=== PATIENT | male | born 1955 | race Caucasian/White ===

== ENCOUNTER 2020-01-29 11:26 | Outpatient (NON) | payer MEDICARE, SELFPAY ==
[2020-01-30 23:37] LABS: SARS-CoV-2 RNA PCR Positive
== END 2020-01-29 11:27 ==
PROVIDERS: Visit Provider Physician Assistant
DX: U07.1 COVID-19 (principal)
CPT/HCPCS: 87635; C9803; U0003

== ENCOUNTER → 2020-03-23 10:46 | Outpatient (CLI) | payer MEDICARE, SELFPAY ==
--- NOTE | ~2020-03-23 | CT_ITS ---
EXAMINATION: CT abdomen pelvis w con INDICATION: Left lower quadrant pain TECHNIQUE: Computed tomographic images of the abdomen and pelvis were obtained after the administrati on of 100 cc of Omnipaque 350 intravenous contrast. The dose-length product (DLP) was 1183.91 mGy-cm. Automated exposure control and iterative reconstruction technique were employed. COMPARISON: None available FINDINGS: Minimal dependent atelectasis is present in the lung bases. The heart size is normal. There is a small sliding hiatal hernia. The gallbladder is surgically absent. There is mild enlargement of the common bile duct and central intrahepatic ducts which is likely due to post cholecystectomy stat e. The liver, spleen, pancreas, and adrenal glands are normal. The kidneys are unremarkable. No patho logically enlarged abdominal or pelvic lymph nodes are identified. There is no free intraperitoneal g as or evidence of bowel obstruction. Colonic diverticulosis is present without evidence of diverticul itis. The appendix is normal. There is moderate lumbar spondylosis. There is atrophy of the gluteus m inimus muscles. IMPRESSION: 1. No CT correlate for the patient's symptoms. Reviewed, dictated and finalized at location A. F CLINICAL DIETITIAN
[2020-03-23 11:06] LABS: Estimated Glomerular Filt Rate > 60
== END ==
PROVIDERS: PCP Family Medicine; Visit Provider Physician Assistant
DX: R10.32 Left lower quadrant pain (principal)
CPT/HCPCS: 74177; Q9967

== ENCOUNTER → 2020-05-23 02:45 | Outpatient (CLI) | payer MEDICARE, SELFPAY ==
[2020-05-23 21:05] LABS: SARS-CoV-2 RNA PCR Negative
== END ==
PROVIDERS: PCP Family Medicine; Visit Provider Internal Medicine Gastroenterology
DX: Z01.812 Encounter for preprocedural laboratory examination (principal); Z20.822 Contact with and (suspected) exposure to COVID-19
CPT/HCPCS: C9803; U0003; U0005

== ENCOUNTER 2020-05-26 01:10 | Day surgery (SDC) | payer MEDICARE, SELFPAY ==
[2020-05-12 09:35] VITALS: BMI 31.6
[2020-05-26 06:18] VITALS: BP 124/88; PULSE 99; RESP 18; TEMP 36.1; O2SAT 100; BMI 31.1
[2020-05-26] MEDS: LACTATED RINGERS 1,000 ML 150 ML IV CONT (06:26)
--- NOTE | 2020-05-26 07:14 | PM.HPGS ---
History of Present Illness History of Present Illness Consent: Risks, benefits, and alternatives have been discussed and questions answered. Patient agrees to proceed with procedure. Chief complaint: neoplasm screening Narrative: Misha Guillermo is a 64 year old male Here for colon cancer screening. His last colonoscopy was 12 years ago. He has had occasional hemorrhoidal bleeding Review of Systems Review of Systems: All systems reviewed & are unremarkable except as noted in HPI and below PMFSH Past Medical History Medical History Abnormal stress echo Atrial fibrillation with rapid ventricular response CAD in [place] artery Chest pain in adult COVID-27 january 2021 Dyslipidemia Essential hypertension Gastro-esophageal reflux disease with esophagitis History of left heart catheterization Irregular heart beats Mixed hyperlipidemia Neuropathy PAF (paroxysmal atrial fibrillation) Tinnitus of both ears Toxic effect of venom Surgical History Surgical History History of cholecystectomy History of neck surgery History of vasectomy Family History Family History Mother Family history of thyroid disease Diabetes mellitus, Onset Age: 62 Family history of congestive heart failure, Onset Age: 62 Acute myocardial infarction Family history of cardiovascular disease Father Acute myocardial infarction Family history of cardiovascular disease Grandparent Diabetes mellitus Sibling Cerebrovascular accident Family history of atrial fibrillation Other Family history of Hodgkin's lymphoma Family history of gastrointestinal disorder Social History Social History Smoking packs per day: 1 Smoking cigarettes per day: 20.0 Years smoked: 20 Smoking pack-years: 20.00 Smoking status: Former smoker Tobacco type: cigarettes Smoking end date: 03/11/02 Alcohol intake: never Substance use: never Substance use type: does not use Living arrangements: with family Spiritual care concerns: No Meds Home Medications and Allergies Home Medications Medication Instructions Recorded Confirmed Type multivitamin 1 tablet PO DAILY 03/31/19 05/12/20 History aspirin 81 mg tablet,delayed 81 mg PO DAILY 10/06/19 05/12/20 History release lisinopril 20 mg tablet 20 mg PO DAILY 10/06/19 05/12/20 History metoprolol succinate 100 mg 100 mg PO DAILY 10/06/19 05/12/20 History tablet,extended release 24 hr rosuvastatin 20 mg tablet 20 mg PO DAILY 10/06/19 05/12/20 History rivaroxaban 20 mg tablet 20 mg PO DAILY #30 each 10/27/19 05/12/20 Rx famotidine 20 mg tablet 20 mg PO Q12H #180 tablet 03/15/20 05/12/20 Rx tadalafil 5 mg tablet 5 mg PO DAILY #90 tablet 03/15/20 05/12/20 Rx sodium,potassium,mag sulfates 17.5 See Rx Instructions PO .COMPLEX 04/13/20 Rx gram-3.13 gram-1.6 gram oral soln #354 ml Allergies Allergy/AdvReac Type Severity Reaction Status Date / Time diclofenac Allergy Unknown stomach Verified 05/26/20 06:17 upset venom-wasp Allergy Unknown Skin Verified 05/26/20 06:17 Reaction Vital Signs Vital Signs - 24 hr 05/26/20 06:18 Temperature 36.1 C L Pulse Rate 99 Respiratory Rate 18 Blood Pressure 124/88 Pulse Oximetry 100 Exam Resp: Auscultation: clear to auscultation bilaterally Cardio: Rate: regular rate Rhythm: regular rhythm GI: GI Palp: Yes Soft to palpation and No Tenderness to palpation present (GI) Assessment and Plan Assessment and plan (1) Colon cancer screening: Code(s): Z12.11 - Encounter for screening for malignant neoplasm of colon Status: Acute Assessment and Plan: Colonoscopy with possible biopsy or polypectomy or cautery or injection of substances.
--- NOTE | 2020-05-26 07:15 | WPDANESEPPF ---
Anes - Initial Pre Proc Eval Procedure: Operation Date: 05/26/20 07:30 Proposed Procedures p Screening Colonoscopy - Lonnie Mendez MD Date/Time: 05/26/20 07:15 Surgeon: Lonnie Mendez MD Pre Op Diagnosis: neoplasm screening Patient Data Age: 64 Gender: M Height: 6 ft 4 in Weight: 116.2 kg Last Vital Signs Temp 97.0 F L 05/26/20 06:18 Pulse 99 05/26/20 06:18 Resp 18 05/26/20 06:18 BP 124/88 05/26/20 06:18 Pulse Ox 100 05/26/20 06:18 Allergies Allergy/AdvReac Type Severity Reaction Status Date / Time diclofenac Allergy Unknown stomach Verified 05/26/20 06:17 upset venom-wasp Allergy Unknown Skin Verified 05/26/20 06:17 Reaction Home Medications Medication Instructions Recorded Confirmed Type multivitamin 1 tablet PO DAILY 03/31/19 05/12/20 History aspirin 81 mg tablet,delayed 81 mg PO DAILY 10/06/19 05/12/20 History release lisinopril 20 mg tablet 20 mg PO DAILY 10/06/19 05/12/20 History metoprolol succinate 100 mg 100 mg PO DAILY 10/06/19 05/12/20 History tablet,extended release 24 hr rosuvastatin 20 mg tablet 20 mg PO DAILY 10/06/19 05/12/20 History rivaroxaban 20 mg tablet 20 mg PO DAILY #30 each 10/27/19 05/12/20 Rx famotidine 20 mg tablet 20 mg PO Q12H #180 tablet 03/15/20 05/12/20 Rx tadalafil 5 mg tablet 5 mg PO DAILY #90 tablet 03/15/20 05/12/20 Rx sodium,potassium,mag sulfates 17.5 See Rx Instructions PO .COMPLEX 04/13/20 Rx gram-3.13 gram-1.6 gram oral soln #354 ml Patient hx anesthesia problems: none Family hx anesthesia problems: none PMFSH Past Medical History Medical History Abnormal stress echo Atrial fibrillation with rapid ventricular response CAD in [place] artery Chest pain in adult COVID-27 january 2021 Dyslipidemia Essential hypertension Gastro-esophageal reflux disease with esophagitis History of left heart catheterization Irregular heart beats Mixed hyperlipidemia Neuropathy PAF (paroxysmal atrial fibrillation) Tinnitus of both ears Toxic effect of venom Surgical History Surgical History History of cholecystectomy History of neck surgery History of vasectomy Family History Family History Mother Family history of thyroid disease Diabetes mellitus, Onset Age: 62 Family history of congestive heart failure, Onset Age: 62 Acute myocardial infarction Family history of cardiovascular disease Father Acute myocardial infarction Family history of cardiovascular disease Grandparent Diabetes mellitus Sibling Cerebrovascular accident Family history of atrial fibrillation Other Family history of Hodgkin's lymphoma Family history of gastrointestinal disorder Social History Social History Smoking packs per day: 1 Smoking cigarettes per day: 20.0 Years smoked: 20 Smoking pack-years: 20.00 Smoking status: Former smoker Tobacco type: cigarettes Smoking end date: 03/11/02 Alcohol intake: never Substance use: never Substance use type: does not use Living arrangements: with family Spiritual care concerns: No Anes - Eval Final PreProcedure Day of Procedure 05/26/20 07:15 Patient weight: overweight Heart: irregular rhythm Lungs: clear to auscultation Airway: Mallampati scale class II Neurological: alert and oriented Last oral intake: >/= 8 hours ASA classification: III Emergent: no Anesthetic plan: proceed Anesthesia type and monitoring: general GIVS and standard monitoring Informed Consent: The patient's anesthetic plan and its attendant risks and benefits were discussed with the patient/family/POA. Questions were solicited and answers provided to the satisfaction of the patient/family/POA.
[2020-05-26 07:43] VITALS: BP 121/91; PULSE 83; RESP 13; O2SAT 97
[2020-05-26 07:53] VITALS: BP 129/84; PULSE 81; RESP 20; O2SAT 96
[2020-05-26 08:03] VITALS: BP 132/93; PULSE 73; RESP 14; O2SAT 98
== END 2020-05-26 08:20 | disposition home or self-care (01) ==
PROVIDERS: PCP Family Medicine; Visit Provider Internal Medicine Gastroenterology
PROC: 0DJD8ZZ Inspection of Lower Intestinal Tract, Via Natural or Artificial Opening Endoscopic (ICD-10-PCS; CPT 45378; principal; 2020-05-26 07:30)
DX: Z12.11 Encounter for screening for malignant neoplasm of colon (principal); K64.8 Other hemorrhoids; K57.30 Diverticulosis of large intestine without perforation or abscess without bleeding; I25.10 Atherosclerotic heart disease of native coronary artery without angina pectoris; I10 Essential (primary) hypertension; E78.2 Mixed hyperlipidemia; I48.0 Paroxysmal atrial fibrillation; K21.9 Gastro-esophageal reflux disease without esophagitis; G62.9 Polyneuropathy, unspecified; Z86.16 Personal history of COVID-19; Z87.891 Personal history of nicotine dependence; Z79.01 Long term (current) use of anticoagulants
CPT/HCPCS: G0121; C9803; J2704; J7120; U0003; U0005

== ENCOUNTER 2020-09-07 17:30 | Observation (INO) | payer MEDICARE, SELFPAY ==
[2020-09-07] VITALS (12 sets, daily range): BP systolic 115–140; BP diastolic 54–84; PULSE 51–58; RESP 11–20; TEMP 36.6; O2SAT 96–100; BMI 31.4
--- NOTE | ~2020-09-07 | XR_ITS ---
EXAMINATION: XR chest 2V EXAM DATE: 09/07/2020 17:56 INDICATION: Sternal chest pain. TECHNIQUE: Frontal and lateral projections of the chest obtained and reviewed. There is no prior grey dy for comparison. FINDINGS: The lungs are clear. There are no pleural effusions. The cardiomediastinal silhouette is within normal limits. There is no pneumothorax suspected. The bones and soft tissues are unremarkab le. There are cholecystectomy clips. IMPRESSION: No acute cardiopulmonary findings. Reviewed, dictated and finalized at location A.
--- NOTE | 2020-09-07 17:38 | ECG_ITS ---
Measurements Intervals [place] Rate: 52 P: 15 WI: 180 QRS: -21 QRSD: 96 T: -9 QT: 433 QTc: 404 Interpretive Statements SINUS BRADYCARDIA DELAYED PRECORDIAL R/S TRANSITION VOLTAGE CRITERIA FOR LVH BORDERLINE T WAVE ABNORMALITY- INFERIOR LEADS BORDERLINE ECG Electronically Signed On 09-08-2020 7:48:49 CDT by Jeffrey Luke D.O.
[2020-09-07 17:50] LABS: Basophils Absolute Auto 0.1 K/mm3 (0.0-0.1); Basophils Percent Auto 0.7 % (0.2-1.2); Eosinophils Absolute Auto 0.5 K/mm3 (0-0.3); Eosinophils Percent Auto 7.1 % (0-4.4); Hematocrit 43.7 % (42.0-52.0); Hemoglobin 14.7 g/dL (14.0-18.0); Immature Granulocyte Absolute 0.01 K/mm3 (0.00-0.031); Immature Granulocyte Percent A 0.1 % (0-0.5); Lymphocytes Absolute Auto 1.85 K/mm3 (0.9-3.2); Lymphocytes Percent Auto 24.9 % (18.3-44.2); Mean Corpuscular HGB Conc 33.6 g/dl (32-36); Mean Corpuscular Hemoglobin 30.1 pg (26-34); Mean Corpuscular Volume 89.5 fl (80-100); Mean Platelet Volume 11.3 fl (7.4-10.4); Monocytes Absolute Auto 0.6 K/mm3 (0.1-0.6); Monocytes Percent Auto 7.8 % (2.6-8.5); Neutrophils Absolute Auto 4.4 K/mm3 (1.3-6.7); Neutrophils Percent Auto 59.4 % (45.5-73.1); Platelet Count Result 227 k/mm3 (150-375); Red Blood Count 4.88 M/mm3 (4.6-6.20); Red Cell Distribution Width 12.5 % (11.5-14.5); White Blood Count 7.4 K/mm3 (4.5-10.0)
--- NOTE | 2020-09-07 17:51 | ED.CHESTPAIN ---
HPI - Chest Pain General Chief Complaint: Chest Pain Stated Complaint: CP, R arm pain Time Seen by Provider: 09/07/20 17:43 Source: old records reviewed History of Present Illness HPI narrative: Patient presents emergency department from home for chest pain. Patient states pain began approximately 2:00 today when [facility] states that pain was in his right upper chest and radiating to his right arm states the pain is improved at this time he noted shortness of breath with that. Patient does state he has a history of some mild cardiac blockage for which she is followed by Dr. Saldivar at [facility] he denies any fevers or chills abdominal pain nausea vomiting or any other symptoms Related Data Home Medications Medication Instructions Recorded Confirmed multivitamin 1 tablet PO DAILY 03/31/19 09/05/20 aspirin 81 mg tablet,delayed 81 mg PO DAILY 10/06/19 09/05/20 release lisinopril 20 mg tablet 20 mg PO DAILY 10/06/19 09/05/20 metoprolol succinate 100 mg 100 mg PO DAILY 10/06/19 09/05/20 tablet,extended release 24 hr rosuvastatin 20 mg tablet 20 mg PO DAILY 10/06/19 09/05/20 Allergies Allergy/AdvReac Type Severity Reaction Status Date / Time diclofenac Allergy Unknown stomach Verified 09/05/20 10:17 upset venom-wasp Allergy Unknown Skin Verified 09/05/20 10:17 Reaction Review of Systems Review of Systems: Narrative: Gen.: Denies fevers or chills ENT: Denies congestion Respiratory: Reports shortness of breath CV: See HPI GI: Denies abdominal pain nausea, emesis or diarrhea denies burning, urgency, frequency or hematuria Musculoskeletal: Denies back pain or muscle pain Neuro: Denies numbness, tingling, weakness or focal weakness Skin: Denies rash Except as documented, all other systems reviewed and negative [facility] Past Medical History Medical History Abnormal stress echo Atrial fibrillation with rapid ventricular response CAD in [place] artery Chest pain in adult COVID-27 january 2021 Dyslipidemia Essential hypertension Gastro-esophageal reflux disease with esophagitis History of left heart catheterization Irregular heart beats Mixed hyperlipidemia Neuropathy PAF (paroxysmal atrial fibrillation) Tinnitus of both ears Toxic effect of venom Surgical History Surgical History History of cholecystectomy History of neck surgery History of vasectomy Family History Family History Mother Family history of thyroid disease Diabetes mellitus, Onset Age: 62 Family history of congestive heart failure, Onset Age: 62 Acute myocardial infarction Family history of cardiovascular disease Father Acute myocardial infarction Family history of cardiovascular disease Grandparent Diabetes mellitus Sibling Cerebrovascular accident Family history of atrial fibrillation Other Family history of Hodgkin's lymphoma Family history of gastrointestinal disorder Social History Social History Smoking packs per day: 1 Smoking cigarettes per day: 20.0 Years smoked: 20 Smoking pack-years: 20.00 Tobacco type: cigarettes Smoking end date: 03/11/02 Alcohol intake: never Substance use: never Substance use type: does not use Spiritual care concerns: No Exam Narrative: Exam Narrative: APPEARANCE: No acute distress, nontoxic, resting in bed EYES: EOMI HEENT: Normocephalic, atraumatic, OMM RESPIRATORY: No respiratory distress Clear to auscultation bilaterally with no rhonchi wheezing or rales. CARDIOVASCULAR: Regular rate and rhythm without murmurs rubs or gallops. Bilateral radial pulse 2+ ABDOMINAL: Soft, nontender, nondistended, no rebound or guarding MUSCULOSKELETAl: Moves all extremities. No clubbing, cyanosis or edema. NEURO: Awake and a
[2020-09-07 17:59] LABS: INR 0.9; Prothrombin Time 13.2 Seconds (11.1-14.7)
[2020-09-07 18:00] LABS: Anion Gap 9 mmol/L (8-16); Blood Urea Nitrogen 19 mg/dL (9-20); Calcium 9.4 mg/dL (8.4-10.2); Carbon Dioxide 23 mmol/L (22-30); Chloride 107 mmol/L (98-107); Estimated CRCL calculation 100 ml/min; Estimated Glomerular Filt Rate > 60; Glucose 87 mg/dL (75-110); Partial Thromboplastin Time 34.6 SECONDS (22.3-36.8); Sodium 139 mmol/L (137-145)
[2020-09-07 18:11] LABS: Troponin I < 0.012 ng/mL (0.000-0.034)
[2020-09-07 21:56] LABS: Troponin I < 0.012 ng/mL (0.000-0.034)
--- NOTE | 2020-09-07 22:00 | ADMGEN ---
This patient, Misha Guillermo, was admitted to IMU Room 203-01. Patient/family oriented to hospital policies and general routines including ID bracelet, bed and alarms, visiting hours, pain management, procedures, bathroom and other care routines, personal items, smoking policy, room service/diet, and visiting hours. Information on how to activate the Rapid Response Team has been discussed. Patient/Family are encouraged to report perceived risks to care and to ask questions if they do not understand what they are told or what they should do.
[2020-09-08] VITALS (8 sets, daily range): BP systolic 122–139; BP diastolic 68–73; PULSE 49–76; RESP 20; TEMP 35.6–36.5; O2SAT 96–100
[2020-09-08 00:27] LABS: Troponin I < 0.012 ng/mL (0.000-0.034)
--- NOTE | 2020-09-08 10:13 | PM.SD2 ---
Same Day Admit/Disch: HPI History of Present Illness Chief complaint: Chest Pain Narrative: Misha Guillermo is a 64 year old male Who presents to the ER yesterday with right-sided chest pain which radiated to his right arm in the afternoon at 2:00 a.m.. He noted some shortness of breath associated with it. The the pain resolves spontaneously but remains sore in his right arm for some time. Patient had a history of mild cardiac blockage for which he follows up with Dr. Singh from [facility] and was worried about heart attack hence came to the ER for evaluation. His initial EKG in the ER not reveal any acute ST-T changes his initial troponin was also normal. He was admitted for further observation and serial cardiac enzyme monitoring. [facility] Past Medical History Medical History Abnormal stress echo Atrial fibrillation with rapid ventricular response CAD in [place] artery Chest pain in adult COVID-27 january 2021 Dyslipidemia Essential hypertension Gastro-esophageal reflux disease with esophagitis History of left heart catheterization Irregular heart beats Mixed hyperlipidemia Neuropathy PAF (paroxysmal atrial fibrillation) Tinnitus of both ears Toxic effect of venom Surgical History Surgical History History of cholecystectomy History of neck surgery History of vasectomy Family History Family History Mother Family history of thyroid disease Diabetes mellitus, Onset Age: 62 Family history of congestive heart failure, Onset Age: 62 Acute myocardial infarction Family history of cardiovascular disease Father Acute myocardial infarction Family history of cardiovascular disease Grandparent Diabetes mellitus Sibling Cerebrovascular accident Family history of atrial fibrillation Other Family history of Hodgkin's lymphoma Family history of gastrointestinal disorder Social History Social History Smoking packs per day: 1 Smoking cigarettes per day: 20.0 Years smoked: 20 Smoking pack-years: 20.00 Smoking status: Never smoker Tobacco type: cigarettes Smoking end date: 03/11/02 Alcohol intake: never Substance use: never Substance use type: does not use Spiritual care concerns: No Same Day Admit/Disch: Med Pre-admit Medications Home Medications Medication Instructions Recorded Confirmed Type multivitamin 1 tablet PO DAILY 03/31/19 09/07/20 History aspirin 81 mg tablet,delayed 81 mg PO DAILY 10/06/19 09/07/20 History release lisinopril 20 mg tablet 20 mg PO DAILY 10/06/19 09/07/20 History metoprolol succinate 100 mg 100 mg PO DAILY 10/06/19 09/07/20 History tablet,extended release 24 hr rosuvastatin 20 mg tablet 20 mg PO DAILY 10/06/19 09/07/20 History rivaroxaban 20 mg tablet 20 mg PO DAILY #30 each 10/27/19 09/07/20 Rx famotidine 20 mg tablet 20 mg PO Q12H #180 tablet 03/15/20 09/07/20 Rx tadalafil 5 mg tablet 5 mg PO DAILY #90 tablet 03/15/20 09/07/20 Rx Exam Narrative: Exam Narrative: GENERAL: The patient is well developed, not in acute distress HEENT: Nonicteric sclerae, PERRLA, EOMI. Oropharynx clear. Moist mucous membranes. Conjunctivae appear well perfused. CHEST: Chest wall is nontender. HEART: Regular rate and rhythm without murmur, rubs, or gallops LUNGS: Clear to auscultation bilaterally. no respiratory distress ABDOMEN: Soft, positive bowel sounds, non-tender, no organomegaly. SKIN: No rash, no excessive bruising, petechiae, or purpura. NEUROLOGIC: Cranial nerves II-XII intact, alert and oriented x 3, no gross motor deficits EXTREMITIES: no edema, cyanosis or clubbing DS: Data Data Completed and Pending Labs on day of discharge: Labs from last 24 hours 09/07/20 09/07/20 09/07/20 23:53 21:29 17:42 WBC RBC Hgb
--- NOTE | 2020-09-08 11:04 | PM.CNCAR ---
Assessment and Plan Additional Plan 1- right arm pain 2- chronic central chest pain 3- paroxysmal atrial fibrillation on anticoagulation 4- hyperlipidemia. patient presents to hospital with right arm pain after he was doing overhead work. pain was intense. His EKG is normal. Troponins negative. His symptoms do not seem to be anginal. He does have modest coronary artery disease as described in the HPI. he follows up at [facility]iology. from cardiac standpoint of view he can be discharged home due to the fact that this pain in the right arm is none anginal . continue home medications History of Present Illness History of Present Illness Consult date/time: date of service 09/08/20 9:15 am Requesting physician: Tenzin Rutledge DO Consult reason: chest pain Reason For Visit: Chest Pain Narrative: this 64-year-old patient with past history of hypertension, paroxysmal atrial fibrillation on anticoagulation, hyperlipidemia who presents to the hospital with right arm pain. He states that he was up on the ladder doing overhead work and then all of a sudden he started to have severe pain involving the right arm. He sat down and was feeling dizzy. He states that he have a chronic chest pain that is central in location has not changed. Denies shortness of breath, lower limb edema, orthopnea, paroxysmal nocturnal dyspnea, syncope. he follows up with Cardiology at [facility] with Dr. singleton. EKG reviewed And analyzed myself looks unremarkable. Troponins x3 negative. last cardiac catheterization 2019 shows ostial LAD 50% and distal LAD 50%, ostial ramus intermedius 60% and 30% in the left circumflex artery. Recommendation at that time to manage medically due to proximity to left main. Review of Systems Constitutional: Constitutional: Denies chills, Denies fever(s) and Denies poor appetite Eyes: Eyes: Denies eye discharge, Denies loss of vision, Denies eye pain and Denies photophobia ENT: Denies dizziness, Denies epistaxis, Denies nasal congestion and Denies sore throat Cardiovascular: Cardiovascular: Reports chest pain, Denies syncope, Denies pedal edema, Denies leg edema, Denies palpitations, Denies dyspnea, Denies dyspnea on exertion and Denies orthopnea Respiratory: Respiratory: Denies cough, Denies dyspnea, Denies dyspnea on exertion and Denies wheezing Gastrointestinal: Gastrointestinal: Denies abdominal pain, Denies diarrhea, Denies nausea and Denies vomiting Genitourinary: Genitourinary: Denies hematuria, Denies genital lesions and Denies dysuria Musculoskeletal: Musculoskeletal: Denies arthralgias, Denies joint swelling, Denies numbness and Reports other (right arm pain) Comments: Right arm pain Integumentary/Breasts: Skin/Breast: Denies pruritus and Denies rash Neurologic: Denies dizziness, Denies syncope, Denies loss of vision and Denies numbness Psychiatric: Psychiatric: Denies anxiety and Denies depression Endocrine: Endocrine: Denies cold intolerance, Denies heat intolerance and Denies palpitations Hematologic/Lymphatic: Hematologic/Lymphatic: Denies easy bleeding and Denies easy bruising Allergic/Immunologic: Allergic/Immunologic: Denies urticaria and Denies wheezing PMFSH Past Medical History Medical History Abnormal stress echo Atrial fibrillation with rapid ventricular response CAD in [place] artery Chest pain in adult COVID-27 january 2021 Dyslipidemia Essential hypertension Gastro-esophageal reflux disease with esophagitis History of left heart catheterization Irregular heart beats Mixed hyperlipidemia Neuropathy PAF (paroxysmal atrial fibrillation) 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
== END 2020-09-08 10:20 | disposition home or self-care (01) ==
LOC: ANHED 19:13 → ANHIMU 21:01
PROVIDERS: Emergency Medicine; Admitting Provider Internal Medicine; Emergency Provider Emergency Medicine; PCP Family Medicine; Visit Provider Internal Medicine
DX: I48.0 Paroxysmal atrial fibrillation (principal); R07.9 Chest pain, unspecified; R06.02 Shortness of breath; M79.601 Pain in right arm; I25.10 Atherosclerotic heart disease of native coronary artery without angina pectoris; I10 Essential (primary) hypertension; K21.9 Gastro-esophageal reflux disease without esophagitis; E78.2 Mixed hyperlipidemia; E11.40 Type 2 diabetes mellitus with diabetic neuropathy, unspecified; Z86.16 Personal history of COVID-19; Z79.82 Long term (current) use of aspirin; Z87.891 Personal history of nicotine dependence; Z79.01 Long term (current) use of anticoagulants; N40.0 Benign prostatic hyperplasia without lower urinary tract symptoms; E66.9 Obesity, unspecified; Z68.31 Body mass index [BMI] 31.0-31.9, adult
CPT/HCPCS: 36415; 71046; 80048; 84484; 85025; 85610; 85730; 93005; 99285; G0378

== ENCOUNTER 2021-02-21 11:21 | Outpatient (RCR) | payer MEDICARE, SELFPAY | END 2021-02-21 23:59 | disposition home or self-care (01) | LOC: ANHAUDIO 11:21 | PROVIDERS: PCP Family Medicine; Visit Provider Family Medicine | DX: Z46.1 Encounter for fitting and adjustment of hearing aid (principal) | CPT/HCPCS: 99199 ==

== ENCOUNTER → 2023-01-16 15:48 | Outpatient (CLI) | payer MEDICARE, SELFPAY ==
--- NOTE | ~2023-01-16 | XR_ITS ---
EXAMINATION: XR knee LT 3V DATE: 01/16/2023 15:55 INDICATION: Lateral left knee pain. TECHNIQUE: 3 views of left knee were obtained. COMPARISON: None. FINDINGS: Bone alignment is normal. No fracture. There is mild osteoarthritis of patellofemoral vani rtment. There is a moderate-sized knee joint effusion. IMPRESSION: 1. Mild left knee osteoarthritis. 2. Moderate-sized knee joint effusion. Reviewed, dictated and finalized at location E. R SCHOOL COORDINATOR
== END ==
PROVIDERS: PCP Family Medicine; Visit Provider Nurse Practitioner Family
DX: M17.12 Unilateral primary osteoarthritis, left knee (principal); M25.462 Effusion, left knee
CPT/HCPCS: 73562

== ENCOUNTER → 2023-01-22 09:44 | Outpatient (CLI) | payer MEDICARE, SELFPAY ==
--- NOTE | ~2023-01-22 | MR_ITS ---
MRI of the left knee Clinical history: Pain Technique: Coronal proton density and proton density-weighted images, sagittal proton-density and T2 fat-sat images, and axial proton-density fat-saturated images were acquired. Findings: Anterior and posterior cruciate ligaments are intact. Medial collateral ligament and the la teral collateral ligament complex are intact. Popliteus tendon is intact. Medial and lateral menisci are intact, without evidence of tear. There is high-grade chondromalacia at the inferior aspect of the femoral trochlea. There is focal hig h-grade chondral lesion along the medial patellar facet. Articular cartilage in the medial lateral co mpartments is well preserved. Extensor mechanism is intact. Moderate joint effusion present, with small Shelton's cyst. Impression: Areas of high-grade chondromalacia of the patellofemoral compartment, as detailed above. Moderate joint effusion. Reviewed, dictated and finalized at [place]. RATORY AIDE Impression: Areas of high-grade chondromalacia of the patellofemoral compartment, as detail ed above. Moderate joint effusion.
== END ==
PROVIDERS: PCP Family Medicine; Visit Provider Nurse Practitioner Family
DX: M25.462 Effusion, left knee (principal); M94.262 Chondromalacia, left knee; M25.562 Pain in left knee
CPT/HCPCS: 73721

== ENCOUNTER 2024-10-08 11:07 | Outpatient (CLI) | payer MEDICARE, SELFPAY ==
--- NOTE | ~2024-10-08 | XR_ITS ---
Lumbosacral Spine: AP, oblique, and lateral views Clinical History: Pain Findings: There is mild levoscoliosis of the thoracolumbar spine. There is moderate to advanced degen erative spurring at L4-L5. There is advanced facet arthropathy throughout the lumbar spine.. The sac roiliac joints are normally outlined. Impression: Moderate degenerative spondylosis overall, as detailed above, with mild levoscoliosis. Reviewed, dictated and finalized at location . Impression: Moderate degenerative spondylosis overall, as detailed above, with mild levosco liosis.
== END 2024-10-08 11:08 | disposition home or self-care (01) ==
LOC: MICIMG 11:08
PROVIDERS: PCP Family Medicine; Visit Provider Family Medicine
DX: M47.816 Spondylosis without myelopathy or radiculopathy, lumbar region (principal); M41.85 Other forms of scoliosis, thoracolumbar region
CPT/HCPCS: 72110

== ENCOUNTER 2024-11-23 09:24 | Outpatient (CLI) | payer MEDICARE, SELFPAY ==
--- NOTE | ~2024-11-23 | XR_ITS ---
EXAM/ PROCEDURE: XR lumbar spine 2-3V - 11/23/2024 9:28 CDT HISTORY: 69 years old Male with Anterolisthesis COMPARISON: None available TECHNIQUE: Three view(s) FINDINGS/ IMPRESSION: There are no fractures or dislocations.Multilevel degenerative changes are seen. Intervertebral disc space narrowing at T11-12 and L4-5. Reviewed, dictated and finalized at location N.
== END 2024-11-23 09:25 | disposition home or self-care (01) ==
LOC: MICIMG 09:25
PROVIDERS: PCP Family Medicine; Visit Provider Physician Assistant
DX: M43.10 Spondylolisthesis, site unspecified (principal)
CPT/HCPCS: 72100

== ENCOUNTER 2025-02-03 08:00 | Outpatient (RCR) | payer MEDICARE, SELFPAY ==
--- NOTE | 2025-01-04 10:07 | OPREHPOC ---
Outpatient Therapy Plan of Care This is a Multidisciplinary Plan of Care that may contain components documented by all disciplines (PT, OT, and ST.) PT Problem 1 PT Problem #1 Knowledge Deficit PT Goal 1 Goal / Goal Update 1. Patient to demonstrate independence with HEP for improved self-reliance of symptom management. PT Problem 2 PT Problem #2 Pain PT Goal 1 Goal / Goal Update 1. Patient to decrease subjective reports of pain to <4/10 for improved ADL tolerance. 2. Patient to report an improvement in radiating L LE symptoms by 50% to increase ability to perform ADLs. Target Visit 8 PT Problem 3 PT Problem #3 Impaired Functional Mobility PT Goal 1 Goal / Goal Update 1. Patient to report increased sitting and standing tolerance to >30 with minimal reports of pain to improve endurance. Target Visit 8 PT Problem 4 PT Problem #4 Impaired Strength PT Goal 1 Goal / Goal Update 1. Patient to demonstrate L LE strength >=4+/5 for improved functional stability required for ADLs. Target Visit 8
--- NOTE | 2025-01-04 10:07 | PTOPEVAL1 ---
Assessment and note entered by Taurus Magaña PT Evaluation Information Assessment Status Evaluation Diagnosis Lumbar radiculopathy ICD-10 Condition Codes (PT) Pain in low back M54.50,Radiculopathy, lumbar region M54.16 Onset Chronic Subjective Information Pt reports a history of lower back pain that radiates into his left leg. Pt reports symptoms are made worse by when sitting and prolonged standing. To this point pt has had x ray and MRI showing degenerative changes and an anterothesis. Pt has had treatments by pain management including an epidural injection but is hoping physical therapy will help him to avoid any more injections and medications. Reported Pain Level Pain Score 4: Self Report Assessment PT Clinical Summary Patient presents to physical therapy with a primary issue of lower back pain with radiating L LE pain. Patient demonstrates Myotmal LE and core weakness, high pain, decreased mobility, abnormal posture, gait deficit, and decreased flexibility that limit their ability to perform activities of daily living and functional movements. Patient will benefit from skilled physical therapy to address the above listed deficits and return to prior level of function. Home exercise program instructed and written handout provided, exercises tolerated well with no adverse effects to note post-session. Patient was educated on importance of adherence to home exercise program. Patient was also educated on anatomy, prognosis, home modalities, and plan of care. Plan of Care Interventions Electrical Stimulation,Manual Therapy,Mechanical Traction,Neuro Re-education,Therapeutic Activities ,Therapeutic Exercise,Other PT Services Indicated Yes Treatment Frequency and 2x 8 visits Duration These treatments will address the objective and functional deficits as defined above. The patient will be advanced safely and appropriately in order for the patient to progress towards his/her prior level of function. Additional exercises will be introduced and as well as a comprehensive home exercise program upon discharge, if needed, ?to ensure carryover of functional gains achieved in the clinic. This treatment plan has been reviewed and agreement upon by the patient.
--- NOTE | 2025-02-03 08:54 | PTOPDC ---
Assessment and note entered by Taurus Magaña, PT Evaluation Information Assessment Status Discharge Diagnosis Lumbar radiculopathy ICD-10 Condition Codes (PT) Pain in low back M54.50,Radiculopathy, lumbar region M54.16 Onset Chronic Subjective Information Pt states he is having continued pain down his L leg and it is a little worse than it has been because he notes there a lot of sitting and and driving over the past weekend. Pt states overall he feels about 40% improvement. He has less frequent pain and feels he has learned ways to manage the symptoms. He states he still has trouble with prolonged sitting, most notably when driving. He has tried lumbar support pillow in the car but he is unsure if it is helping. He would like to discharge from PT for now because his insurance is changing and he will be busy around the holidays. Reported Pain Level Pain Score 3: Self Report Assessment PT Clinical Summary Patient's low back pain with L LE radicular symptoms has improved overall as evidenced by advancements in decrease symptoms and increase in mobility, strength, and overall functional use of the extremity. However, some limitations are still present and further therapy was recommended. Pt requested discharge with updated HEP because he is having to switch insurances and will be busy around the holidays. Patient to contact physical therapist or primary care provider if questions or concerns arise Plan of Care PT Services Indicated No
== END 2025-02-03 11:52 | disposition home or self-care (01) ==
LOC: ANHGOSHPT 08:00
PROVIDERS: PCP Family Medicine; Visit Provider Family Medicine
DX: M54.17 Radiculopathy, lumbosacral region (principal)
CPT/HCPCS: 97110; 97112; 97140; 97161; 97530; 97750